=== PATIENT | male | born 1940 | race Caucasian/White ===

== ENCOUNTER 2021-01-22 06:24 | Day surgery (SDC) | payer MEDICARE, OTHER ==
[~2021-01-22] VITALS: Ht 157.5 cm; Wt 50.0 kg
[~2021-01-22 06:24] MED LIST: SODIUM CHLORIDE 0.9% 1,000 ML ONE
[2021-01-22] MEDS ORDERED: BENZOCAINE 20% 50 MCG/SPRAY 57 GM TP ONE (06:25)
[2021-01-22] MEDS ORDERED: ALBUTEROL SULFATE 2.5 MG/0.5 ML NEB SOLUTION NEB ONE (06:25)
[2021-01-22] MEDS ORDERED: LIDOCAINE 2% 30 ML JELLY TP ONE (06:25)
[2021-01-22] MEDS ORDERED: SODIUM CHLORIDE 0.9% 1,000 ML IV ONE (06:30)
[2021-01-22 06:43] LABS: COVID AG,FIA SOURCE NASOPHARYNGEAL
[2021-01-22] MEDS ORDERED: CALCITRATE PO (06:53)
[2021-01-22] MEDS ORDERED: LOVA40TA2 PO (06:53)
[2021-01-22] MEDS ORDERED: HYDR12.54 PO (06:53)
[2021-01-22] MEDS ORDERED: GABA-533 PO (06:53)
[2021-01-22] MEDS ORDERED: ALEN70TA80 PO (06:53)
[2021-01-22] MEDS ORDERED: FentaNYL CITRATE PF 100 MCG/2 ML VIAL ONE (07:45)
[2021-01-22] MEDS ORDERED: MIDAZOLAM HCL 5 MG/ML VIAL ONE (07:45)
[2021-01-22] MEDS ORDERED: MethylPREDNISolone SOD SUCC 125 MG/2 ML VIAL IVP ONE (09:15)
[2021-01-22] MEDS ORDERED: MethylPREDNISolone SOD SUCC 125 MG/2 ML VIAL ONE (09:32)
[2021-01-22] MEDS ORDERED: OXYGEN THERAPY IH SCH (20:00)
== END 2021-01-22 10:40 | disposition home or self-care (01) ==
LOC: SURGERY 06:24
PROVIDERS: ATTEND Internal Medicine Critical Care Medicine
DX: J38.4 Edema of larynx (principal); B37.0 Candidal stomatitis; I10 Essential (primary) hypertension; Z79.899 Other long term (current) drug therapy; Z98.890 Other specified postprocedural states
CPT/HCPCS: 31623; 31624; 71045; 87015; 87070; 87077; 87101; 87186; 87205; 87206; 87220; 87426; 88108; 88184; 88185; 88312; C9803; J2250; J2930; J3010; J7030; J7613